=== PATIENT | male | born 1975 | race Caucasian/White ===

== ENCOUNTER 2017-08-18 04:19 | Emergency (ER) | payer OTHER ==
[2017-08-18 04:23] VITALS: BP 132/85; PULSE 105; TEMP 98.7; BMI 25.8
[2017-08-18] MEDS ORDERED: IBUPROFEN 600 MG TABLET (FP) PO ONE (04:39)
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
--- NOTE | 2017-08-18 05:00 | PDOC ---
*Physical Exam - Vital Signs Last Vital Signs Temp Pulse Resp BP Pulse Ox 98.7 F 105 H 20 132/85 93 L 08/18/17 04:21 08/18/17 04:21 08/18/17 04:21 08/18/17 04:21 08/18/17 04:21 Medical Decision Making - Medical Decision Making 08/18/17 04:59 agree with care from ENRIQUETA Claudio *DC/Admit/Observation/Transfer Diagnosis at time of Disposition: Strain of shoulder, left, Hand strain - Discharge Dispostion Disposition: HOME Condition at time of disposition: Stable - Prescriptions Prescriptions: Ibuprofen [Motrin -] 600 mg PO TID PRN #21 tablet PRN Reason: Pain - Referrals Referrals: Norberto Millard MD [Staff Physician] - - Patient Instructions Additional Instructions: Please take medication as prescribed. If your symptoms do not improve in 5-7 days, please follow up with an orthopedics for further evaluation and a possible MRI or physical therapy. If you experience any loss of sensation to your extremities, any swelling or increased pain to hand or shoulder, please return to the ER. - Post Discharge Activity
[2017-08-18] MEDS ORDERED: IBUPROFEN 400 MG TABLET (FP) PO ONE (05:07)
== END 2017-08-18 05:40 | disposition home or self-care (01) ==
LOC: JER 04:19
DX: S66.812A Strain of other specified muscles, fascia and tendons at wrist and hand level, left hand, initial encounter (principal); S46.812A Strain of other muscles, fascia and tendons at shoulder and upper arm level, left arm, initial encounter; X50.0XXA Overexertion from strenuous movement or load, initial encounter; X08.8XXA Exposure to other specified smoke, fire and flames, initial encounter; Y93.89 Activity, other specified; Y92.89 Other specified places as the place of occurrence of the external cause; Y99.0 Civilian activity done for income or pay
CPT/HCPCS: 73030-TC-LT; 73130-TC-LT; 99281-25

== ENCOUNTER 2018-01-23 11:03 | Emergency (ER) | payer OTHER ==
[2018-01-23 11:07] VITALS: BP 115/81; PULSE 86; TEMP 98.2; BMI 25.8
[2018-01-23] MEDS ORDERED: IBUPROFEN 600 MG TABLET (FP) PO ONE ×2 (11:34→11:40)
--- NOTE | 2018-01-23 11:34 | PDOC ---
History of Present Illness - General Chief Complaint: Injury Stated Complaint: BACK PAIN (YFD) Time Seen by Provider: 01/23/18 11:22 History Source: Patient Exam Limitations: No Limitations - History of Present Illness Initial Comments: 01/23/18 11:35 Date while on duty, [employer], was starting a saw with the pull cord that abruptly stopped causing him to wrench his lower back. States stood and stretched but when he bent lift L had a worsening onset of this pain primarily at the waistline. Denies numbness or tingling to feet, no problems with bowel or bladder. Occurred: reports: this morning Severity: reports: moderate Pain Location: reports: back Method of Injury: Yes: fall Modifying Factors: improves with: None Associated Symptoms (Fall): muscle spasms (tender tight musculature low back) Past History - Travel Traveled outside of the country in the last 30 days: No Close contact w/someone who was outside of country & ill: No - Past Medical History Allergies/Adverse Reactions: Allergies Allergy/AdvReac Type Severity Reaction Status Date / Time No Known Allergies Allergy Verified 01/23/18 11:04 Home Medications: Ambulatory Orders Cyclobenzaprine HCl 10 mg PO Q8H PRN #14 tablet 01/23/18 Naproxen [Naprosyn -] 500 mg PO TID #30 tablet 01/23/18 COPD: No - Immunization History Td Vaccination: Yes Immunization Up to Date: Yes - Suicide/Smoking/Psychosocial Hx Smoking Status: No Smoking History: Never smoked Years of Tobacco Use: 0 Have you smoked in the past 12 months: No Number of Cigarettes Smoked Daily: 0 Cigars Per Day: 0 Information on smoking cessation initiated: No Hx Alcohol Use: No Drug/Substance Use Hx: No Substance Use Type: None Trauma Specific PMHX - Complaint Specific PMHX Arthritis: No Back Injury: No Neck Injury: No Review of Systems - Review of Systems Able to Perform ROS?: Yes Is the patient limited [place] proficient: Yes Constitutional: Yes: Symptoms Reported, See HPI. No: Malaise HEENTM: No: Symptoms Reported Musculoskeletal: Yes: Symptoms Reported, See HPI, Back Pain, Muscle Pain Integumentary: Yes: See HPI. No: Symptoms Reported All Other Systems: Reviewed and Negative *Physical Exam - Vital Signs Last Vital Signs Temp Pulse Resp BP Pulse Ox 98.2 F 86 18 115/81 100 01/23/18 11:05 01/23/18 11:05 01/23/18 11:05 01/23/18 11:05 01/23/18 11:05 - Physical Exam General Appearance: Yes: Nourished, Appropriately Dressed, Apparent Distress, Mild Distress HEENT: positive: PRAFUL, Normal ENT Inspection, TMs Normal, Pharynx Normal Neck: positive: Supple. negative: Tender Respiratory/Chest: positive: Lungs Clear Gastrointestinal/Abdominal: positive: Soft Musculoskeletal: positive: Normal Inspection, Decreased Range of Motion, Muscle Spasm (tender tight musculature to low back, worse on the left than the right spasm). 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 II-XII NML intact, Fully Oriented, Alert, Normal Mood/ Affect Progress Note - Progress Note Progress Note: Back strain, we'll treat with NSAIDs and cyclobenzaprine *DC/Admit/Observation/Transfer Diagnosis at time of Disposition: Low back strain Qualifiers: Encounter type: initial encounter Qualified Code(s): S39.012A - Strain of muscle, fascia and tendon of lower back, initial encounter - Discharge Dispostion Disposition: HOME Condition at time of disposition: Stable Decision to Admit order: No - Prescriptions Prescriptions: Cyclobenzaprine HCl 10 mg PO Q8H PRN #14 tablet PRN Reason: spasm Naproxen [Naprosyn -] 500 mg PO TID #30 tablet - Referrals Referrals: Wes Farmer MD [Staff Physician] - - Patient Instructions Printed Discharge Instructions: DI for Back Strain or Sprain Additional Instructions: Rest, no heavy lifting or exercise until pain is resolved Hot soaks to neck and low back as often as possible/hot showers or Jacuzzis No massage or therapy until spasm is gone Continue Naprosyn 500 mg tablet, 1 tablet every 8 hours for the next 3 days then as needed for pain and swelling Cyclobenzaprine 1-10mg every 8 hours as needed for spasm If not significant improvement within 24 hours with medication and rest regime, followup with private physician for change in medications and /or therapy. - Post Discharge Activity Forms/Work/School Notes: Back to Work
== END 2018-01-23 11:52 | disposition home or self-care (01) ==
LOC: JERFT 11:03
DX: S39.012A Strain of muscle, fascia and tendon of lower back, initial encounter (principal); X50.0XXA Overexertion from strenuous movement or load, initial encounter; Y93.89 Activity, other specified; Y92.89 Other specified places as the place of occurrence of the external cause; Y99.0 Civilian activity done for income or pay
CPT/HCPCS: 99281-25

== ENCOUNTER 2018-09-17 10:11 | Emergency (ER) | payer BC, OTHER ==
--- NOTE | 2018-09-17 10:14 | PDOC ---
History of Present Illness - General Chief Complaint: Chest Pain Stated Complaint: CHEST PRESSURE Time Seen by Provider: 09/17/18 10:13 History Source: Patient Exam Limitations: No Limitations - History of Present Illness Initial Comments: 43 yo M w no reported pmh presents to the ER with 6 months of left sided chest discomfort which he is currently not experiencing but at the worst times it can be a 7/10 pain in intensity. He describes the discomfort as achy in quality. The discomfort began 6 months ago and is not triggered by anything in specific. The patient reports it occasionally comes on when he is sitting down watching TV and not by his physical activity in the gym. The pain/discomfort has not progressed since it began it just comes and goes. Last night, the patient had close to 15 drinks and was experiencing the chest discomfort more so than usual so he went to urgent care earlier today to be evaluated. Urgent care sent the patient to the ER to be evaluated and receive a stress test. The patient is not currently experiencing any pain or discomfort here in the ER. When the discomfort comes on it is not associated with nausea, vomiting, or diaphoresis. The patient Denies any recent fevers, chills, infections, back pain, abdominal pain, diarrhea, constipation, leg/arm swelling, recet travel, headaches, vertigo , blurry vision, numbness weakness, or tingling. PCP: None PSH: None reported Social Hx: Drinks alcohol at least once a week. smokes 1/2 cigarettes a day. Denies IVDU. Allergies: None reported. Past History - Past Medical History Allergies/Adverse Reactions: Allergies Allergy/AdvReac Type Severity Reaction Status Date / Time No Known Allergies Allergy Verified 09/17/18 10:12 Home Medications: Ambulatory Orders NK [No Known Home Medication] 02/21/18 COPD: No - Immunization History Td Vaccination: Yes Immunization Up to Date: Yes - Suicide/Smoking/Psychosocial Hx Smoking Status: No Smoking History: Never smoked Years of Tobacco Use: 0 Have you smoked in the past 12 months: No Number of Cigarettes Smoked Daily: 0 Cigars Per Day: 0 Hx Alcohol Use: No Drug/Substance Use Hx: No Substance Use Type: None Review of Systems - Review of Systems Able to Perform ROS?: Yes Comments:: CONSTITUTIONAL: Absent: fever, no chills, no fatigue EYES: Absent: visual changes ENT: Absent: ear pain, no sore throat CARDIOVASCULAR: Present: Chest pain Absent: no palpitations RESPIRATORY: Absent: cough, no SOB GI: Absent: abdominal pain, no nausea, no vomiting, no constipation, no diarrhea GENITOURINARY: Absent: dysuria, no frequency, no hematuria MUSKULOSKELETAL: Absent: back pain, no arthralgia, no myalgia SKIN: Absent: rash NEURO: Absent: headache *Physical Exam - Physical Exam Comments: GENERAL: Well-appearing, well-nourished. No apparent distress. HEENT: Normocephalic, atraumatic. PERRL, EOM intact. CARDIOVASCULAR: Normal S1, S2. Regular rate and rhythm. PULMONARY: No evidence of respiratory distress. Lungs clear to auscultation bilaterally. No wheezing, rales or rhonchi. ABDOMEN: Soft, non-distended, non-tender. EXTREMITIES: Normal ROM in all four extremities. No gross deformities. SKIN: Warm, dry. No rash NEUROLOGICAL: No focal neurological deficits. ED Treatment Course - LABORATORY CBC & Chemistry Diagram: 09/17/18 10:46 09/17/18 10:46 Medical Decision Making - Medical Decision Making 43 yo M w no reported pmh presents to the ER with 6 months of left sided chest discomfort which he is currently not experiencing but at the worst times it can be a 7/10 pain in intensity. He describes the discomfort as achy in quality. The discomfort began 6 months ago and is not triggered by anything in specific. The patient reports it occasionally comes on when he is sitting down watching TV and not by his physical activity in the gym. The pain/discomfort has not progressed since it began it just comes and goes. Last night, the patient had close to 15 drinks and was experiencing the chest discomfort more so than usual so he went to urgent care earlier to be evaluated. Urgent care sent the patient to the ER to be evaluated and receive a stress test. The patient is not currently experiencing any pain or discomfort here in the ER. When the discomfort comes on it is not associated with nausea, vomiting, or diaphoresis. VS: borderline Tachy ~ high 90's, otherwise WNL DDx IBNLT: ACS/MA, pneumothorax, PNA, PE, MSK chest pain, bill horse, dehydration, muscle strain, arrhythmia, electrolyte abnormality, Alcohol induced chest discomfort. Plan: EKG, Cbc, Cmp, Trop, Dimer, re-assess. EKG: Normal Sinus Labs unremarkable other than mild hypoglycemia of 72 - gave patient apple juice. Trop and Dimer negative. This is likely Costochondritis as pain is reproducible on exam and focal. Will DC with PCP and cardio follow up. *DC/Admit/Observation/Transfer Diagnosis at time of Disposition: Atypical chest pain - Discharge Dispostion Disposition: HOME Condition at time of disposition: Stable Decision to Admit order: No - Referrals Referrals: Marcello Mace MD [Staff Physician] - Seymour Rios MD [Staff Physician] - [facility] [Provider Group] Dwayne Champion MD [Staff Physician] - - Patient Instructions Printed Discharge Instructions: DI for Atypical Chest Pain, DI for Chest Pain, DI for Costochondritis Additional Instructions: You came into the ER with chest pain. We did an electrocardiogram and looked at your blood which did not suggest you had a heart attack. It is possible your chest pain is musculoskeletal in nature. Take motrin/ibuprofen/tylenol as needed for pain control. Drink plenty of fluids. Try your best not to drink excessive amounts of alcohol. It is extremely important for you to schedule an appointment with a color weigher and a primary care doctor to be followed. We have attached numbers of both cardiologists and primary care doctors for you to follow up with. Please make sure to call and schedule appointments. Come back to the ER if your chest pain worsens, you become short of breath or have any difficulty breathing, feel nauseous and start vomiting, get a fever, or have any other new or worsening concerns. Thank you for coming to the [facility]. We hope you feel better soon! Print Language: ARABIC - Post Discharge Activity
--- NOTE | 2018-09-17 10:19 | PDOC ---
Attending Attestation - Resident Resident Name: Marshal Alonso - ED Attending Attestation I have performed the following: I have examined & evaluated the patient, The case was reviewed & discussed with the resident, I agree w/resident's findings & plan - [facility] HPI: 09/17/18 12:15 43 yo M w no pmh presents to the ER with 6 months of left sided chest discomfort , described as achy, nonradiating, nonexertional. able to point to his left chest pain, worse with palpation and movement. can occur at rest. 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 +caffeine intake daily. no palpitations. went to urgent care center [facility], referred to the ED for "stress test." currently chest pain free - Physicial Exam PE: 09/17/18 12:19 NAD, well appearing, PERRL, EOMI, MMM, nl conjunctiva, anicteric; neck supple. lungs clear, RRR, abdomen soft nontender. JOHNSON x4, no focal neuro deficits. No peripheral edema. normal color for ethnicity, WWP. no calf tenderness. - Medical Decision Making 09/17/18 12:17 See HPI for details Vital signs reviewed, wnl. laboratory results and imaging reviewed, basic labs and lytes wnl, dimer_negative, so unlikely dissection or PE with history. no infectious sx. CXR_no acute pathology, normal silhouette,no effusion or consolidation/edema. Cardiac panel_neg trop x1, sufficient as this has been x months, exacerbated last night, now chest pain free and also reproducible. - low suspicion for ACS/ cardiac, without exertional or radiating component and unremarkable EKG with ST segment abnormalities in contiguous distribution EKG normal sinus rhythm, no interval abnormalities, narrow QRS, ST and T wave segments and morphology normal. Nonspecific T wave abnormalities in III only, no contiguous lead changes Pt to be discharged in stable condition. Patient and family made aware of impression and plan, return precautions discussed (including but not limited to worsening pain or symptoms), fevers, or signs of infection, chest pain, respiratory distress, inability to tolerate oral intake, dehydration, syncope, or neurologic changes). Follow up with PMD (referrals provided) and/or specialist (cards referrals given) as recommended, follow up information provided, take medications as instructed for duration of time. continue with supportive care, avoid triggers and precipitants. Patient does not suffer from an acute life-threatening medical condition at this time he is safe for outpatient follow-up. 09/17/18 13:09 Heart Score/ECG Review - ECG Impressions Normal ECG: Yes Comment:: 09/17/18 13:12 EKG normal sinus rhythm, no interval abnormalities, narrow QRS, ST and T wave segments and morphology normal. Nonspecific T wave abnormalities in III only, no contiguous lead changes
[2018-09-17 10:28] VITALS: TEMP 97.4; BMI 26.6
[2018-09-17 11:02] LABS: BASO % 0.5 % (0-2.0); EOS % 0.5 % (0-4.5); HEMATOCRIT 45.8 % (35.4-49); MCHC 32.8 g/dl (32.0-35.9); MEAN CELL VOLUME 91.5 fl (80-96); MEAN PLT VOLUME 7.7 fl (7.5-11.1); MONO % 7.2 % (3.8-10.2); NEUT % 57.8 % (42.8-82.8); PLATELET COUNT 285 K/MM3 (134-434); RBC 5.01 M/mm3 (4.00-5.60); RDW 12.1 % (11.9-15.9); WHITE BLOOD COUNT 4.6 K/mm3 (4.0-10.8)
[2018-09-17 11:19] LABS: ALBUMIN 4.6 g/dl (3.4-5.0); ALK PHOS 53 U/L (45-117); ANION GAP 11 MMOL/L (8-16); BILIRUBIN,TOTAL 0.3 mg/dl (0.2-1); BLOOD UREA NITROGEN 12 mg/dl (7-18); CALCIUM 8.8 mg/dl (8.5-10); CHLORIDE 105 mmol/L (98-107); CO2 27 mmol/L (21-32); CREATININE 0.8 mg/dl (0.55-1.3); GLUCOSE,RANDOM 72 mg/dl (74-106); SGOT/AST 24 U/L (15-37); SGPT/ALT 34 U/L (13-61); SODIUM 143 mmol/L (136-145); TOT PROT 7.8 g/dl (6.4-8.2)
--- NOTE | 2018-09-17 12:38 | EKG ---
Test Reason : Blood Pressure : / mmHG Vent. Rate : 094 BPM Atrial Rate : 094 BPM P-R Int : 180 ms QRS Dur : 088 ms QT Int : 354 ms P-R-T Axes : 062 024 019 degrees QTc Int : 442 ms NORMAL SINUS RHYTHM NORMAL ECG WHEN COMPARED WITH ECG OF 10-MAY-2018 10:30, VENT. RATE HAS INCREASED BY 31 BPM Confirmed by CEZAR LOPEZ MD ([id number]) on 09/17/2018 12:37:43 PM Referred By: JALEN Confirmed By:CEZAR LOPEZ MD
[2018-09-17 13:29] VITALS: BP 115/77; PULSE 71
== END 2018-09-17 13:28 | disposition home or self-care (01) ==
LOC: FER 10:11
DX: R07.89 Other chest pain (principal)
CPT/HCPCS: 36415; 71046-TC-FY; 80053; 84484; 85025; 85379; 93005; 99285-25

== ENCOUNTER 2019-01-19 18:24 | Emergency (ER) | payer OTHER, BC ==
--- NOTE | 2019-01-19 18:30 | PDOC ---
Rapid Medical Evaluation Medical Evaluation: Allergies Allergy/AdvReac Type Severity Reaction Status Date / Time No Known Allergies Allergy Verified 09/17/18 10:12 01/19/19 18:28 I have performed a brief in-person evaluation of this patient. The patient presents with a chief complaint of: L hand lac Pertinent physical exam findings:lac I have ordered the following:nothing The patient will proceed to the ED for further evaluation. Discharge Disposition - Diagnosis Laceration of hand Qualifiers: Encounter type: initial encounter Foreign body presence: without foreign body Laterality: left Qualified Code(s): S61.412A - Laceration without foreign body of left hand, initial encounter - Referrals - Patient Instructions - Post Discharge Activity
[2019-01-19 18:48] VITALS: BP 123/78; PULSE 73; TEMP 98.3; BMI 26.6
[2019-01-19] MEDS ORDERED: DIPHTH,PERTUSS(ACELL),TET 0.5 ML DISP.SYRIN IM ONE ×2 (19:07→19:08)
--- NOTE | 2019-01-19 19:35 | PDOC ---
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 Patient states wound won't stop bleeding GENERAL/CONSTITUTIONAL: No fever, weakness. dizziness HEAD, EYES, EARS, NOSE AND THROAT: No change in vision. No ear pain or discharge. No sore throat. CARDIOVASCULAR: No chest pain RESPIRATORY: No shortness of breath or cough GASTROINTESTINAL: No pain, nausea, vomiting, diarrhea or constipation GENITOURINARY: No dysuria MUSCULOSKELETAL: No neck or back pain SKIN: No rash, + laceration NEUROLOGIC: No headache, vertigo, loss of consciousness, or loss of sensation. GENERAL: The patient is awake, alert, and fully oriented, in no acute distress. HEAD: Normal with no signs of trauma. EYES: Pupils equal, round and reactive to light, sclera anicteric, conjunctiva clear. ENT: pharynx: no erythema, no exudate, uvula midline NECK: supple CHEST: clear, nontender, rr EXTREMITIES: Thumb with 2 cm laceration on the dorsal aspect of the MCP, able to flex, extend, abduct and adduct, full range of motion, neurovascular intact, no signs of tendon injury. No signs of foreign body. Rest of extremities, Normal range of motion, no edema. NEUROLOGICAL: Normal speech, normal gait. SKIN: Warm, Dry Past History - Past Medical History Allergies/Adverse Reactions: Allergies Allergy/AdvReac Type Severity Reaction Status Date / Time No Known Allergies Allergy Verified 01/19/19 18:37 Home Medications: Ambulatory Orders NK [No Known Home Medication] 02/21/18 COPD: No - Immunization History Td Vaccination: Yes Immunization Up to Date: Yes - Suicide/Smoking/Psychosocial Hx Smoking Status: No Smoking History: Former smoker Years of Tobacco Use: 0 Have you smoked in the past 12 months: No Number of Cigarettes Smoked Daily: 0 Cigars Per Day: 0 Information on smoking cessation initiated: No Hx Alcohol Use: No Drug/Substance Use Hx: No Substance Use Type: None *Physical Exam - Vital Signs Last Vital Signs Temp Pulse Resp BP Pulse Ox 98.3 F 73 16 123/78 99 01/19/19 18:37 01/19/19 18:37 01/19/19 18:37 01/19/19 18:37 01/19/19 18:37 Procedures - Laceration/Wound Repair Left Finger 1st digit Wound Length: to 2.5 cm Wound Explored: clean Wound's Depth, Shape: superficial, linear Irrigated w/ Saline: Yes Betadine Prep: Yes Anesthesia: 1% Lidocaine Wound Repaired With: Sutures Suture Size/Type: 5:0 Number of Sutures: 3 Layer Closure: No Sterile Dressing Applied: Yes Splint Applied: No ED Treatment Course - Medications Given in the ED: ED Medications Discontinued Medications Generic Name Dose Route Start Last Admin Trade Name Ace PRN Reason Stop Dose Admin Diphtheria/Tetanus/Acell Pertussis 0.5 ml 01/19/19 19:07 01/19/19 19:10 Boostrix - IM 01/19/19 19:08 0.5 ml .ONCE ONE Administration Medical Decision Making - Medical Decision Making 01/19/19 19:33 Healthy 43-year-old male with small laceration to the left thumb MCP, need suturing, needs tetanus. No signs of tendon injury. *DC/Admit/Observation/Transfer Diagnosis at time of Disposition: Laceration of hand Qualifiers: Encounter type: initial encounter Foreign body presence: without foreign body Laterality: left Qualified Code(s): S61.412A - Laceration without foreign body of left hand, initial encounter - Discharge Dispostion Disposition: HOME Condition at time of disposition: Stable - Referrals - Patient Instructions Printed Discharge Instructions: DI for Laceration Repair Additional Instructions: Do not get wet for 2 days. Apply bacitracin several times a day. After this you can gently clean it with soap and water and apply bacitracin at least 2 times daily. Have reevaluated if redness, pus or getting worse. Have sutures evaluated for removal in 7-10 days - Post Discharge Activity
== END 2019-01-19 19:40 | disposition home or self-care (01) ==
LOC: JERFT 18:24
PROC: 3E0234Z Introduction of Serum, Toxoid and Vaccine into Muscle, Percutaneous Approach (ICD-10-PCS; principal; 2019-01-19)
PROC: 0HQGXZZ Repair Left Hand Skin, External Approach (ICD-10-PCS; 2019-01-19)
DX: S61.412A Laceration without foreign body of left hand, initial encounter (principal); W22.8XXA Striking against or struck by other objects, initial encounter; Y93.89 Activity, other specified; Y92.89 Other specified places as the place of occurrence of the external cause; Y99.0 Civilian activity done for income or pay
CPT/HCPCS: 90715; 99282-25

== ENCOUNTER 2020-09-17 09:47 | Emergency (ER) | payer OTHER ==
[2020-09-17 09:52] VITALS: BP 131/91; PULSE 71; TEMP 98.1; BMI 26.6
[2020-09-17] MEDS ORDERED: ACETAMINOPHEN 325 MG TABLET (FP) PO ONE (10:40)
[2020-09-17] MEDS ORDERED: LIDOCAINE 5% TOPICAL PATCH TP ONE (10:40)
[2020-09-17] MEDS ORDERED: KETOROLAC TROMETHAMINE 60 MG/2 ML VIAL IM ONE (10:40)
[2020-09-17] MEDS ORDERED: ACETAMINOPHEN 325 MG TABLET (FP) ONE (11:24)
[2020-09-17] MEDS ORDERED: KETOROLAC TROMETHAMINE 30 MG/1 ML VIAL ONE (11:24)
[2020-09-17] MEDS ORDERED: LIDOCAINE 5% TOPICAL PATCH ONE (11:24)
[2020-09-17] MEDS ORDERED: LIDOCAINE PATCH REMOVAL MC ONE (22:00)
== END 2020-09-17 11:34 | disposition home or self-care (01) ==
LOC: JERFT 09:47
PROC: 3E023GC Introduction of Other Therapeutic Substance into Muscle, Percutaneous Approach (ICD-10-PCS; principal; 2020-09-17)
DX: M25.511 Pain in right shoulder (principal)
CPT/HCPCS: 73030-TC-RT-FY; 99284-25

== ENCOUNTER 2021-05-04 17:37 | Emergency (ER) | payer OTHER ==
[2021-05-04 17:58] VITALS: BP 141/90; PULSE 72; TEMP 98.1; BMI 26.6
[2021-05-04] MEDS ORDERED: KETOROLAC TROMETHAMINE 30 MG/1 ML VIAL IM ONE (19:44)
[2021-05-04] MEDS ORDERED: KETOROLAC TROMETHAMINE 30 MG/1 ML VIAL ONE (19:59)
== END 2021-05-04 20:05 | disposition home or self-care (01) ==
LOC: JERFT 17:37 → JER 17:37 → JERFT 20:05
PROC: 3E0233Z Introduction of Anti-inflammatory into Muscle, Percutaneous Approach (ICD-10-PCS; principal; 2021-05-04)
DX: M54.40 Lumbago with sciatica, unspecified side (principal); X50.0XXA Overexertion from strenuous movement or load, initial encounter
CPT/HCPCS: 99284-25

== ENCOUNTER 2021-06-12 14:03 | Emergency (ER) | payer OTHER ==
[2021-06-12 14:22] VITALS: BP 122/82; PULSE 97; TEMP 97.7; BMI 25.1
[2021-06-12] MEDS ORDERED: METHOCARBAMOL 500 MG TABLET PO ONE (15:20)
[2021-06-12] MEDS ORDERED: NAPROXEN 500 MG TABLET PO ONE (15:20)
[2021-06-12] MEDS ORDERED: METHOCARBAMOL 500 MG TABLET ONE (15:21)
[2021-06-12] MEDS ORDERED: NAPROXEN 500 MG TABLET ONE (15:21)
== END 2021-06-12 15:23 | disposition home or self-care (01) ==
LOC: JERFT 14:03
DX: S39.012A Strain of muscle, fascia and tendon of lower back, initial encounter (principal); X50.0XXA Overexertion from strenuous movement or load, initial encounter
CPT/HCPCS: 99283-25

== ENCOUNTER 2022-05-17 09:05 | Emergency (ER) | payer OTHER ==
[2022-05-17 09:51] VITALS: BP 133/84; PULSE 65; RESP 16; TEMP 97.7; BMI 26.6
[2022-05-17] MEDS ORDERED: IBUPROFEN 400 MG TABLET (FP) PO ONE ×2 (11:18→11:32)
== END 2022-05-17 13:18 | disposition home or self-care (01) ==
LOC: JERFT 09:05
DX: S46.912A Strain of unspecified muscle, fascia and tendon at shoulder and upper arm level, left arm, initial encounter (principal); X50.0XXA Overexertion from strenuous movement or load, initial encounter
CPT/HCPCS: 73030-TC-LT-FY; 99283-25

== ENCOUNTER 2023-03-11 20:01 | Emergency (ER) | payer OTHER ==
[2023-03-11 20:06] VITALS: BP 136/75; PULSE 75; RESP 18; TEMP 98; BMI 27.3
[2023-03-11] MEDS ORDERED: IBUPROFEN 600 MG TABLET (FP) PO ONE (20:36)
== END 2023-03-11 21:11 | disposition home or self-care (01) ==
LOC: JERFT 20:01
DX: M25.561 Pain in right knee (principal); M25.361 Other instability, right knee; X50.1XXA Overexertion from prolonged static or awkward postures, initial encounter; Y93.02 Activity, running; Y99.0 Civilian activity done for income or pay
CPT/HCPCS: 73562-TC-RT-FY; 99283-25

== ENCOUNTER 2024-03-31 21:31 | Emergency (ER) | payer BC, OTHER ==
[2024-03-31 21:35] VITALS: TEMP 98; BMI 27.3
[2024-03-31] MEDS: OXYMETAZOLINE 0.05% NASAL SOLUTION 15 ML BOTTLE NS ONE (22:43)
[2024-03-31] MEDS ORDERED: TRANEXAMIC ACID 1000 MG/10 ML VIAL ONE ×2 (22:45→22:49)
[2024-03-31] MEDS: TRANEXAMIC ACID 1000 MG/10 ML VIAL IVPUSH ONE (23:09)
[2024-03-31 23:10] LABS: BASO % 0.6 % (0-2.0); EOS % 2.5 % (0-4.5); HEMATOCRIT 41.8 % (35.4-49); LYMPH % 28.5 % (8-40); MCH 29.7 pg (25.7-33.7); MCHC 33.5 g/dl (32.0-35.9); MEAN CELL VOLUME 88.6 fl (80-96); MEAN PLT VOLUME 7.2 fl (7.5-11.1); MONO % 8.5 % (3.8-10.2); NEUT % 59.9 % (42.8-82.8); PLATELET COUNT 310 10^3/uL (134-434); RBC 4.72 M/mm3 (4.00-5.60); RDW 13.6 % (11.9-15.9); WHITE BLOOD COUNT 7.5 K/mm3 (4.0-10.0)
[2024-03-31 23:16] LABS: INR 0.89 (0.83-1.09); PROTHROMBIN TIME (PATIENT) 10.3 SEC (9.7-13.0)
[2024-03-31 23:19] LABS: ACTIVATED PTT 26.2 SECONDS (25.2-36.5)
[2024-03-31 23:34] LABS: POTASSIUM 3.7 mmol/L (3.5-5.1)
[2024-03-31 23:36] LABS: ALBUMIN 3.9 g/dl (3.4-5.0); BLOOD UREA NITROGEN 21.2 mg/dL (7-18); CALCIUM 9.1 mg/dL (8.5-10.1)
[2024-03-31 23:38] LABS: CREATININE 1.1 mg/dL (0.55-1.3)
[2024-03-31 23:40] LABS: BILIRUBIN,TOTAL 0.3 mg/dL (0.2-1); TOT PROT 7.7 g/dl (6.4-8.2)
[2024-04-01] MEDS: SODIUM CHLORIDE 0.9% 500 ML INFUS.BAG IV ONE (00:16)
[2024-04-01] MEDS ORDERED: morphine SULFATE 4 MG/ML VIAL ONE (00:22)
[2024-04-01] MEDS: morphine CARPU-JECT 4 MG/1 ML DISP.SYRIN IVPUSH ONE (01:02)
[2024-04-01] MEDS ORDERED: morphine CARPU-JECT 4 MG/1 ML DISP.SYRIN IVPUSH ONE (03:31)
[2024-04-01 03:54] VITALS: BP 153/88; PULSE 82; RESP 18
== END 2024-04-01 03:54 | disposition short-term general hospital (02) ==
LOC: JER 21:31
PROC: 3E033NZ Introduction of Analgesics, Hypnotics, Sedatives into Peripheral Vein, Percutaneous Approach (ICD-10-PCS; principal; 2024-04-01)
PROC: 3E033GC Introduction of Other Therapeutic Substance into Peripheral Vein, Percutaneous Approach (ICD-10-PCS; 2024-04-01)
DX: S00.511A Abrasion of lip, initial encounter (principal); R04.0 Epistaxis; W10.8XXA Fall (on) (from) other stairs and steps, initial encounter
CPT/HCPCS: 36415; 80053; 85025; 85610; 85730; 86850; 86900; 86901; 99285-25

== ENCOUNTER 2024-08-10 17:59 | Emergency (ER) | payer BC, OTHER ==
[2024-08-10 18:11] VITALS: BP 148/92; PULSE 99; RESP 18; BMI 27.3
[2024-08-10] MEDS ORDERED: LIDOCAINE 4% PATCH TP ONE (19:11)
[2024-08-10] MEDS ORDERED: KETOROLAC TROMETHAMINE 15 MG/ML VIAL ONE (19:12)
[2024-08-10] MEDS: KETOROLAC TROMETHAMINE 15 MG/ML VIAL IM ONE (20:01)
[2024-08-10] MEDS: LIDOCAINE 5% TOPICAL PATCH TP ONE (20:01)
[2024-08-10] MEDS ORDERED: LIDOCAINE PATCH REMOVAL MC SCH (22:00)
== END 2024-08-10 21:32 | disposition home or self-care (01) ==
LOC: JER 17:59 → JERFT 17:59
PROC: 3E0133Z Introduction of Anti-inflammatory into Subcutaneous Tissue, Percutaneous Approach (ICD-10-PCS; principal; 2024-08-10)
DX: M79.10 Myalgia, unspecified site (principal)
CPT/HCPCS: 99284-25

== ENCOUNTER 2025-01-01 13:42 | Emergency (ER) | payer OTHER ==
[2025-01-01 13:51] VITALS: BP 123/80; PULSE 81; RESP 20; TEMP 98.4; BMI 35.5
[2025-01-01] MEDS ORDERED: NAPROXEN 500 MG TABLET ONE (14:35)
[2025-01-01] MEDS: NAPROXEN 500 MG TABLET PO ONE (14:41)
== END 2025-01-01 14:59 | disposition home or self-care (01) ==
LOC: JERFT 13:42
DX: S39.012A Strain of muscle, fascia and tendon of lower back, initial encounter (principal); X50.0XXA Overexertion from strenuous movement or load, initial encounter; Y99.0 Civilian activity done for income or pay
CPT/HCPCS: 99283-25